=== PATIENT | male | born 2000 | race Caucasian/White ===

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

== ENCOUNTER 2019-03-18 13:09 | Emergency (ER) | payer OTHER ==
--- NOTE | 2019-03-18 13:20 | ER Report ---
History and Physical Time Seen By : 13:19 Hx. of Stated Complaint: Pt. has had a sore throat since yesterday. Temp 100 in triage. Pain with swallowing, pain 04/23. HPI/ROS CHIEF COMPLAINT: Sore throat HISTORY OF PRESENT ILLNESS: 18 year old male presents to ED with sore throat that started yesterday afternoon. Reports it hurts constantly but is a sharp pain when he swallows. Reports fevers. Reports he has been taking dayquil and nyquil for his symptoms with minimal relief of pain and fever. Denies sinus pain, ear pain, nausea, vomiting. REVIEW OF SYSTEMS: Constitutional: Reports fevers HEENT: No ear pain, no sinus pain, no rhinorrhea, no headache. Reports sore throat. Respiratory: No cough, no dyspnea. Cardiovascular: No chest pain, no palpitations. Gastrointestinal: No vomiting, no abdominal pain. Musculoskeletal: No back pain. Allergies: Coded Allergies: No Known Drug Allergies (Unverified , 03/18/19) Home Meds Active Scripts Fluticasone/Salmeterol (ADVAIR 500-50 DISKUS) 1 Each Disk.w.dev, 1 EACH IH BID, #1 DISK Prov:RIGOBERTO HERNANDEZ 03/18/19 Montelukast Sodium (SINGULAIR) 10 Mg Tablet, 1 TAB PO QDAY, #30 TAB Prov:RIGOBERTO HERNANDEZ 03/18/19 Albuterol Sulfate (VENTOLIN HFA) 18 Gm Inh, 2 PUFF INH Q4-6H PRN for SHORTNESS OF BREATH, #1 INH Prov:RIGOBERTO HERNANDEZ 03/18/19 Prednisone (PREDNISONE) 20 Mg Tablet, 40 MG PO DAILY, #10 TAB Prov:RIGOBERTO HERNANDEZ 03/18/19 Cefdinir 300 Mg Cap (OMNICEF 300 MG CAP (OR EQUIV)) 300 Mg Cap, 300 MG PO BID, #14 CAP Prov:RIGOBERTO HERNANDEZ 03/18/19 Levalbuterol Hcl (XOPENEX) 1.25 Mg/3 Ml Vial.neb, 1.25 MG IH QID PRN for astma, #30 VIAL 6 Refills Prov:LISA LICEA MD 07/18/18 Albuterol Sulfate (VENTOLIN HFA) 18 Gm Inh, 2 PUFF INH Q4-6H PRN for asthma, #1 INH 5 Refills Prov:LISA LICEA MD 07/18/18 Fluticasone/Salmeterol (ADVAIR 500-50 DISKUS) 1 Each Disk.w.dev, 1 EACH IH BID, #3 DISK 1 Refill Prov:LISA LICEA MD 07/18/18 Montelukast Sodium (SINGULAIR) 10 Mg Tablet, 1 TAB PO QDAY, #90 TAB 1 Refill Prov:LISA LICEA MD 07/18/18 Discontinued Scripts Acyclovir (ZOVIRAX) 800 Mg Tablet, 800 MG PO BID for 5 Days, #10 TAB 3 Refills Prov:LISA LICEA MD 07/18/18 Past Medical/Surgical History Past medical hx of asthma. No past surgical hx. Reviewed Nurses Notes: Yes Constitutional Vital Sign - Last 24 Hours 03/18/19 03/18/19 03/18/19 03/18/19 13:13 13:14 13:30 13:39 Temp 100.0 Pulse 105 85 Resp 16 B/P (MAP) 125/84 (98) 125/84 124/82 (96) Pulse Ox 93 95 O2 Delivery Room Air 03/18/19 03/18/19 03/18/19 03/18/19 14:00 14:09 14:30 14:35 Pulse 90 88 B/P (MAP) 126/77 (93) 129/70 (89) Pulse Ox 92 91 03/18/19 03/18/19 15:00 15:05 Pulse 89 B/P (MAP) 111/68 (82) Pulse Ox 90 Physical Exam General Appearance: The patient is alert, has no immediate need for airway protection and no current signs of toxicity. Eyes: Pupils equal and round no injection. HENT: Right tonsil +2, left tonsil +3 with white exudate bilaterally. Submental lymph nodes palpated bilaterally. Respiratory: Chest is non tender, lungs are clear to auscultation. Cardiac: regular rate and rhythm Gastrointestinal: Abdomen is soft and non tender, no masses, bowel sounds normal. Musculoskeletal: Neck: Neck is supple and non tender. Extremities have full range of motion and are non tender. Skin: No rashes or lesions. DIFFERENTIAL DIAGNOSIS: After history and physical exam differential diagnosis was considered for strep pharyngitis, peritonsillar abscess. Medical Decision Making Data Points Laboratory Hematology Test 03/18/19 13:27 Group A Streptococcus (PCR) Negative (NEGATIVE) Chemistry Test 03/18/19 13:27 Group A Streptococcus (PCR) Negative (NEGATIVE) ED Course/Re-evaluation ED Course Upon arrival to the ED, patient admitted to an exam room, hx and physical obtained, differentials considered. Patient presents to ED with sore throat that started yesterday afternoon. Reports it hurts constantly but is a sharp pain when he swallows. Reports fevers and has been taking dayquil and nyquil for his symptoms with minimal relief of pain and fever. Denies sinus pain, rhinorrhea, ear pain, nausea, vomiting. On exam, lungs are clear, heart rate and rhythm normal, right tonsil +2, left tonsil +3 with white exudate bilaterally, submental lymph nodes palpated bilaterally. IV started, 1000ml NS infused. Strep swab collected. Ibuprofen, 600mg given for pain and fever. Strep was negative, but will treat for strep due to clinical presentation. 1 gm Rocephin given IV. Discussed with patient the worry that he could also have a peritonsillar abscess , however we will plan to send him home with oral antibiotics and a course of steroids. If his symptoms do not improve he is to follow-up with his PCP. Patient agrees with plan of care. Decision to Disposition Date: Mar 18, 2019 Decision to Disposition Time: 15:04 Depart Departure Latest Vital Signs Vital Signs Date Time Temp Pulse Resp B/P (MAP) Pulse Ox O2 Delivery O2 Flow Rate FiO2 03/18/19 15:05 89 90 03/18/19 15:00 111/68 (82) 03/18/19 13:14 100.0 16 Room Air Impression: Primary Impression: Pharyngitis Condition: Improved Disposition: HOME OR SELF-CARE Referrals: LISA LICEA MD (PCP) New Scripts Fluticasone/Salmeterol (ADVAIR 500-50 DISKUS) 1 Each Disk.w.dev 1 EACH IH BID, #1 DISK Prov: RIGOBERTO HERNANDEZ 03/18/19 Montelukast Sodium (SINGULAIR) 10 Mg Tablet 1 TAB PO QDAY, #30 TAB Prov: RIGOBERTO HERNANDEZ 03/18/19 Albuterol Sulfate (VENTOLIN HFA) 18 Gm Inh 2 PUFF INH Q4-6H PRN for SHORTNESS OF BREATH, #1 INH Prov: RIGOBERTO HERNANDEZ 03/18/19 Prednisone (PREDNISONE) 20 Mg Tablet 40 MG PO DAILY, #10 TAB Prov: RIGOBERTO HERNANDEZ 03/18/19 Cefdinir 300 Mg Cap (OMNICEF 300 MG CAP (OR EQUIV)) 300 Mg Cap 300 MG PO BID, #14 CAP Prov: RIGOBERTO HERNANDEZ 03/18/19 Patient Instructions: Pharyngitis (ED) Additional Instructions: Increase fluid intake. Get plenty of rest. Follow up with your primary care provider in the next week. Return to the ER if condition worsens. Take Tylenol or Ibuprofen as needed for fevers or chills. Take medication as directed. Problem Qualifiers Primary Impression: Pharyngitis Pharyngitis/tonsillitis etiology: unspecified etiology Qualified Codes: J02.9 - Acute pharyngitis, unspecified RIGOBERTO HERNANDEZ Mar 18, 2019 13:19
[2019-03-18] MEDS ORDERED: NS(*) 0.9% 1000 ML BAG 1,000 ML IV ONE (13:30)
[2019-03-18] MEDS ORDERED: cefTRIAXone 1 GM VIAL IVP ONE (14:10)
[2019-03-18] MEDS ORDERED: IBUPROFEN 600 MG TAB PO ONE (14:10)
[2019-03-18 15:00] VITALS: BP 111/68
[2019-03-18] MEDS ORDERED: ALB18R INH (15:02)
[2019-03-18] MEDS ORDERED: MONT10TA PO (15:02)
[2019-03-18] MEDS ORDERED: PRED20TA6 PO (15:02)
[2019-03-18] MEDS ORDERED: CEF300 PO (15:02)
[2019-03-18] MEDS ORDERED: FLUT1DIS29 IH (15:02)
== END 2019-03-18 15:15 | disposition home or self-care (01) ==
LOC: ER 13:31
DX: J02.9 Acute pharyngitis, unspecified (principal)
CPT/HCPCS: 87653; 96361; 96374; 99283; J0696; J7030